=== PATIENT | male | born 1970 | race Caucasian/White ===

== ENCOUNTER 2022-11-19 11:35 | Outpatient (CLI) | payer OTHER, SELFPAY ==
[2022-11-19 13:55] LABS: Albumin* 4.1 g/dL (3.3-5.0); Chloride* 102 mmol/L (96-114); Sodium* 136 mmol/L (135-149)
[2022-11-19 13:56] LABS: Potassium* 4.3 mmol/L (3.6-5.1)
[2022-11-19 13:58] LABS: Alanine Aminotransferase* 25 U/L (4-50); Alkaline Phosphatase* 91 U/L (40-150); Aspartate Amino Transferase* 20 U/L (12-35); Bilirubin Total* 0.6 mg/dL (0.1-1.5); Blood Urea Nitrogen* 21 mg/dL (7-30); Calcium* 9.3 mg/dL (8.4-10.6); Carbon Dioxide* 26 mmol/L (20-32); Cholesterol* 211 mg/dL (90-199); Creatinine* 0.8 mg/dL (0.5-1.5); Estimated Glomerular Filt Rate 106 ml/min; Glucose* 214 mg/dL (60-115); Total Protein* 6.6 g/dL (6.0-8.3); Triglycerides* 393 mg/dL (40-149)
[2022-11-19 13:59] LABS: HDL Cholesterol* 38 mg/dL (>=40); LDL Cholesterol Calculated 94 mg/dL (<100)
[2022-11-19 14:07] LABS: Creatinine Urine 206.1 mg/dL
[2022-11-19 14:10] LABS: Microalbumin Creatinine Ratio 0 mg/g (0-30); Microalbumin Urine 1 mg/dL
[2022-11-19 14:21] LABS: PSA Screen* 0.36 ng/mL (0.10-4.00)
== END 2022-11-19 11:36 | disposition home or self-care (01) ==
PROVIDERS: PCP Emergency Medicine; Visit Provider Emergency Medicine
DX: Z00.00 Encounter for general adult medical examination without abnormal findings (principal); E11.9 Type 2 diabetes mellitus without complications; I10 Essential (primary) hypertension; E78.2 Mixed hyperlipidemia; Z12.5 Encounter for screening for malignant neoplasm of prostate
CPT/HCPCS: 80053; 80061; 82043; 82570; 84153

== ENCOUNTER 2025-01-07 13:25 | Outpatient (CLI) | payer OTHER, SELFPAY | END 2025-01-07 13:26 | disposition home or self-care (01) | LOC: NFLDREF 01-10 01:49 | PROVIDERS: PCP Family Medicine; Referring Provider Family Medicine; Visit Provider Family Medicine | DX: Z01.818 Encounter for other preprocedural examination (principal); I10 Essential (primary) hypertension; E11.3299 Type 2 diabetes mellitus with mild nonproliferative diabetic retinopathy without macular edema, unspecified eye; E78.2 Mixed hyperlipidemia; Z12.5 Encounter for screening for malignant neoplasm of prostate; Z79.4 Long term (current) use of insulin | CPT/HCPCS: 80053; G0103 ==

== ENCOUNTER 2025-01-26 15:43 | Outpatient (CLI) | payer OTHER, SELFPAY ==
--- NOTE | 2025-01-26 16:00 | CRLHL7_ITS ---
For Patients: As a result of the Century Cures Act, medical imaging exams and procedure reports are released immediately into your electronic medical record. You may view this report before your referring provider. If you have questions, please contact your health care provider. Indication: Elevated D-dimer Technique: Real-time longitudinal and transverse sonographic miller-scale imaging with and without compression, as well as color, duplex, and spectral Doppler imaging before and after augmentation, was obtained of the deep system of the left lower extremity, including the common femoral, femoral, popliteal, posterior tibial, and peroneal veins. Comparison: None. Findings: Common femoral vein: No evidence of thrombus. Femoral vein: No evidence of thrombus. Popliteal vein: No evidence of thrombus. Calf veins: Patent. Superficial venous thrombus is seen in a vein along the medial aspect of the left foot; this connects to the left greater saphenous vein. Impression: 1. No ultrasound evidence of deep venous thrombosis. 2. Superficial venous thrombus is seen in a vein along the medial aspect of the left foot; this connects to the left greater saphenous vein. Dictated by Temo Metcalf MD @ 01/26/2025 5:08:34 PM (Electronically Signed)
== END 2025-01-26 15:44 | disposition home or self-care (01) ==
PROVIDERS: PCP Family Medicine; Visit Provider Physician Assistant
DX: R79.89 Other specified abnormal findings of blood chemistry (principal); I82.812 Embolism and thrombosis of superficial veins of left lower extremity
CPT/HCPCS: 93971